=== PATIENT | female | born 1935 | race Caucasian/White ===

== ENCOUNTER 2018-01-29 16:52 | Emergency (ER) | payer OTHER ==
[~2018-01-29] VITALS: Ht 162.6 cm; Wt 64.9 kg
--- NOTE | 2018-01-29 17:26 | ED UPPER/LOWER EXTREMITY COMPL ---
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 STATES SHE WAS TRYING TO GET INTO HER DAUGHTERS CAR AND SHE MISSED A STEP AND FELL INTO THE GROUND. DENIES HEADSTRIKE. STATES SHE FELL ONTO HER KNEE. DENIES TAKING BLOOD THINNERS. PT A&O X3. Triage Nurses Notes Reviewed? yes Onset: Abrupt Duration: minute(s): Timing: single episode today Severity: moderate Pain/Injury Location: Right: Knee, Ankle. Method of Injury: fall HPI: 82yo female with hx of osteopenia, HTN presents to ED complaining of pain in right knee and ankle after fall prior to arrival. Patient states that she was lifting her left foot to get into the car when she slipped backwards and fell landing on her right leg. Patient did not hit her head or lose consciousness during the fall. Patient was having difficulty getting up however was able to get up to stand however pain is worse when she bears weight on the right leg. Patient has pain in right knee and right ankle at this time. Patient's daughter states that the patient had a fall within the past few weeks while she was on vacation as well. Patient denies headache, abdominal pain, back pain, numbness, tingling, bleeding. (Vale HANDY,Bozena Dominguez) Past History Travel History Traveled to [place] past 21 day No Medical History Any Pertinent Medical History? see below for history Neurological: NONE EENT: NONE Cardiovascular: hypertension, hyperlipidemia Respiratory: NONE Gastrointestinal: NONE Hepatic: NONE Renal: NONE Musculoskeletal: NONE Psychiatric: NONE Endocrine: NONE Blood Disorders: NONE Cancer(s): NONE CHIEF INFORMATICS OFFICER/Reproductive: NONE Surgical History Surgical History: non-contributory Psychosocial History What is your primary language Faroese Tobacco Use: Never used Family History Hx Contributory? No (Bozena Zamora) Review of Systems Review of Systems Constitutional: Reports: no symptoms. EENTM: Reports: no symptoms. Respiratory: Reports: no symptoms. Cardiovascular: Reports: no symptoms. Gastrointestinal/Abdominal: Reports: no symptoms. Genitourinary: Reports: no symptoms. Musculoskeletal: Reports: see HPI. Skin: Reports: no symptoms. Neurological/Psychological: Reports: no symptoms. Hematologic/Endocrine: Reports: no symptoms. Immunological: Reports: no symptoms. All Other Systems: Reviewed and Negative (Bozena Zamora) Physical Exam Physical Exam General Appearance: well developed/nourished, no apparent distress, alert, awake Head: atraumatic, normal appearance Eyes: Bilateral: normal appearance. Ears, Nose, Throat: hearing grossly normal Neck: normal inspection, supple, full range of motion, no midline tenderness Cardiovascular/Respiratory: normal peripheral pulses, no respiratory distress Peripheral Pulses: 2+ dorsalis pedis (R) Back: normal inspection, normal range of motion, no vertebral tenderness Leg Left: normal range of motion, normal inspection Leg Right: normal range of motion, normal inspection Hip Left: normal range of motion, normal inspection Hip Right: normal range of motion, normal inspection Knee Left: normal range of motion, normal inspection Knee Right: normal range of motion, tenderness to anterior and lateral knee, mild swelling Knee Ligaments Right: no gross laxity Foot Left: normal inspection, normal range of motion Foot Right: tenderness to lateral malleolus with mild ecchymosis and swelling Neurologic/Tendon: normal sensation, normal motor functions, normal tendon functions Skin: warm/dry, ecchymosis (Bozena Zamora) Progress Differential Diagnosis: contusion, dislocation, fracture, sprain, tendon injury Plan of Care: X-rays show subtle eversion fracture to right distal fibula. Also old fifth metatarsal fracture as well as acute vs old lateral epicondyle fracture. Patient and family educated on these findings. Spoke with Dr. Duke regarding this patient. He recommends posterior legs point to immobilize ankle and she will follow-up with the patient tomorrow in his office. He states light weightbearing on right side is allowed. Patient has a screening walker that she can sit on and will allow her to be mobile in her home until she follows up with Dr. Duke tomorrow. Dr. Duke feels that knee immobilization is not required at this time. Patient placed in posterior leg splint, she tolerated splinting well. Patient feels comfortable in transitioning from chair to bed with splint on. Patient and family agree with the plan of care, they will follow-up with Dr. Duke tomorrow as discussed. Patient and family feel comfortable with over-the- counter pain management with Tylenol. Diagnostic Imaging: Viewed by Me: Radiology Read. Discussed w/RAD: Radiology Read. Radiology Impression: PATIENT: DIYA VANCE PRESENT AGE: 82 PATIENT ACCOUNT NO: [id number] : 34 LOCATION: [facility] ORDERING PHYSICIAN: Bozena HANDY SERVICE DATE: 01/29/18 EXAM TYPE: RAD - XRY-ANKLE 3 OR MORE VIEWS R; XRY-FOOT COMPLETE, R; XRY-KNEE COMPLETE RIGHT EXAMINATION: XR KNEE, RIGHT XR ANKLE, RIGHT XR FOOT, RIGHT CLINICAL INFORMATION: Status post fall today. Right ankle pain, knee pain and foot pain. Evaluate for fracture. COMPARISON: Right knee films dated 07/14/2017. TECHNIQUE: Four views of the right knee. 3 views of the right ankle and 3 views of the right foot. FINDINGS: Right knee: There is a fracture of the lateral femoral condylar osteophyte, of uncertain chronicity given the associated underlying sclerosis in this region. In the acute trauma setting, acute fracture is suspected. Finding is new compared to the prior exam. There is moderate degenerative change in the lateral femoral compartment with joint space narrowing and sclerosis and spurring of the femoral condyle and tibial plateau. Mild degenerative changes seen in the patellofemoral compartment. Medial femoral compartment is relatively well-maintained in height with minimal spurring noted. No joint calcifications is seen. Trace suprapatellar knee joint effusion is noted. Osteopenia is seen. Right ankle: Diffuse osteopenia. Mild bimalleolar soft tissue swelling. Evaluation is limited due to degree of osteopenia. There is a small bone fragment seen at the tip of the fibula, possibly a small avulsion fracture. No other fractures seen. The ankle mortise remains intact. No ankle joint effusion is seen. There is a old ununited fracture at the base of the fifth metatarsal bone seen. Right foot: Diffuse osteopenia. Dorsal soft tissue swelling over the midfoot. No acute fracture or dislocation. Old ununited fracture at the base of the fifth metatarsal bone is seen. Small plantar calcaneal spur is noted. IMPRESSION: 1. Marked osteopenia. 2. Fracture of the lateral femoral condylar osteophyte is seen, new when compared to 07/14/2017, and possibly acute. Evaluation of chronicity of the fracture is limited due to underlying sclerosis of the bone in this location. Close clinical correlation is requested. 3. Suspicion of subtle avulsion fragment at the tip of the fibula with overlying soft tissue swelling. 4. 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 No acute fracture of the right foot is seen. DICTATED BY: Tresa Mckeon MD DATE/TIME DICTATED:01/29/181819 ELECTRIC POWER MACHINE OPERATOR:DONN DATE /TIME TRANSCRIBED:01/29/181819 CONFIDENTIAL, DO NOT COPY WITHOUT APPROPRIATE AUTHORIZATION. <Electronically signed in Other Vendor System> SIGNED BY: Tresa Mckeon MD 01/29/18 183 (Vale HANDY,Bozena Dominguez) Departure Departure Disposition: HOME OR SELF CARE Condition: Stable Clinical Impression Primary Impression: Avulsion fracture of distal fibula Secondary Impressions: Fall Qualifiers: Encounter type: initial encounter Qualified Code: W19.XXXA - Unspecified fall, initial encounter Fracture of fifth metatarsal bone Qualifiers: Encounter type: subsequent encounter Fracture type: closed Fracture alignment: displaced Laterality: right Fracture healing: with nonunion Qualified Code: S92.351K - Displaced fracture of fifth metatarsal bone, right foot, subsequent encounter for fracture with nonunion Fracture of lateral condyle of femur Qualifiers: Encounter type: initial encounter Fracture type: closed Fracture alignment: displaced Laterality: right Qualified Code: S72.421A - Displaced fracture of lateral condyle of right femur, initial encounter for closed fracture Referrals: Jonathan Corey MD (PCP/Family) Giovanni Duke DPM Additional Instructions: Take Tylenol 500-650 mg as needed for pain, ibuprofen 400 mg for pain. Follow- up with Dr. Duke tomorrow morning at 11AM. His address in your paperwork. Return with worsening symptoms or concerns. Please note that there might be incidental findings in your evaluation that are unrelated to the current emergency department visit. Please notify your primary care doctor about this emergency department visit in order to obtain and review all of the testing performed so that these incidental findings can be monitored as needed. If you had an x-ray performed, please understand that some fractures may not be seen on the initial set of x-rays. If your symptoms persist you might need a repeat set of x-rays to check for such a fracture. If you had a laceration evaluated, please understand that foreign bodies such as glass or wood may not be visible to the naked eye or on plain x-rays. If the wound becomes red, swollen, increasingly more painful or if there is any drainage from the wound, please have it reevaluated by a physician for the possibility of a retained foreign body. If you're unable to follow up as outlined in the discharge instructions please return to the emergency department. Thank you for choosing the [facility] Emergency Department for your care. It was a pleasure to serve you today. Departure Forms: Customer Survey General Discharge Information (Bozena Zamora) PA/MACHINE OPERATOR PACKAGING Co-Sign Statement Statement: ED Attending supervision documentation- [x] I saw and evaluated the patient. I have also reviewed all the pertinent lab results and diagnostic results. I agree with the findings and the plan of care as documented in the PA's/MACHINE OPERATOR PACKAGING's documentation. [] I have reviewed the ED Record and agree with the PA's/MACHINE OPERATOR PACKAGING's documentation. [] Additions or exceptions (if any) to the PAs/MACHINE OPERATOR PACKAGING's note and plan are summarized below: [] (Monique CLEMENTS,Los Espinoza) Procedures Splinting Location: ankle Manual Alignment Performed: No Hand-Made Type: orthoglass Splint: posterior leg Splint Applied By: splint applied by me Pre-Proc Neuro Vasc Exam: normal Post-Proc Neuro Vasc Exam: normal Progress: Patient tolerated procedure well. (Bozena Zamora)
--- NOTE | 2018-01-29 18:32 | RADIOLOGY REPORT ---
EXAMINATION: XR KNEE, RIGHT XR ANKLE, RIGHT XR FOOT, RIGHT CLINICAL INFORMATION: Status post fall today. Right ankle pain, knee pain and foot pain. Evaluate for fracture. COMPARISON: Right knee films dated 07/14/2017. TECHNIQUE: Four views of the right knee. 3 views of the right ankle and 3 views of the right foot. FINDINGS: Right knee: There is a fracture of the lateral femoral condylar osteophyte, of uncertain chronicity given the associated underlying sclerosis in this region. In the acute trauma setting, acute fracture is suspected. Finding is new compared to the prior exam. There is moderate degenerative change in the lateral femoral compartment with joint space narrowing and sclerosis and spurring of the femoral condyle and tibial plateau. Mild degenerative changes seen in the patellofemoral compartment. Medial femoral compartment is relatively well-maintained in height with minimal spurring noted. No joint calcifications is seen. Trace suprapatellar knee joint effusion is noted. Osteopenia is seen. Right ankle: Diffuse osteopenia. Mild bimalleolar soft tissue swelling. Evaluation is limited due to degree of osteopenia. There is a small bone fragment seen at the tip of the fibula, possibly a small avulsion fracture. No other fractures seen. The ankle mortise remains intact. No ankle joint effusion is seen. There is a old ununited fracture at the base of the fifth metatarsal bone seen. Right foot: Diffuse osteopenia. Dorsal soft tissue swelling over the midfoot. No acute fracture or dislocation. Old ununited fracture at the base of the fifth metatarsal bone is seen. Small plantar calcaneal spur is noted. IMPRESSION: 1. Marked osteopenia. 2. Fracture of the lateral femoral condylar osteophyte is seen, new when compared to 07/14/2017, and possibly acute. Evaluation of chronicity of the fracture is limited due to underlying sclerosis of the bone in this location. Close clinical correlation is requested. 3. Suspicion of subtle avulsion fragment at the tip of the fibula with overlying soft tissue swelling. 4. 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 No acute fracture of the right foot is seen.
[2018-01-29 19:34] VITALS: BP 154/70
== END 2018-01-29 19:53 ==
LOC: ERH 16:52
DX: S72.421A Displaced fracture of lateral condyle of right femur, initial encounter for closed fracture (principal); S82.401A Unspecified fracture of shaft of right fibula, initial encounter for closed fracture; S92.351A Displaced fracture of fifth metatarsal bone, right foot, initial encounter for closed fracture; W19.XXXA Unspecified fall, initial encounter; Y93.89 Activity, other specified; Y92.9 Unspecified place or not applicable
CPT/HCPCS: 73562-RT; 73610-RT; 73630-RT

== ENCOUNTER → 2018-07-28 | Day surgery (SDC) | payer OTHER ==
[~2018-07-28] VITALS: Ht 142.2 cm; Wt 52.6 kg
--- NOTE | 2018-07-28 10:10 | ULTRASOUND CBW REPORT ---
EXAMINATION: US GUIDED NEEDLE LOCALIZATION BREAST, LEFT POST PROCEDURE LEFT DIAGNOSTIC MAMMOGRAM CLINICAL INFORMATION: Needle localization of left breast cancer at 2:00, 7 cm from the nipple. COMPARISON: Preoperative films dated 06/29/2018. TECHNIQUE NEEDLE LOC: Proper informed consent is obtained from the patient after discussion of the procedure, potential risks and complications, and alternatives including declining the procedure today. Patient was given an opportunity for questions. The patient appeared to understand. The patient consented to the procedure and signed the consent form. GUIDANCE: Ultrasound. APPROACH: Lateral. TARGET: 0.7 x 0.6 x 0.8 cm mass in the 2:00 position of the left breast, 7 cm from the nipple. ANESTHESIA: 10 mL lidocaine 2 % LOCALIZATION MARKER: CyberVision Text 5 cm needle localization system. The skin was prepped and local anesthesia administered. The needle was positioned and position assessed with mammography. The wire was hooked into position. The patient tolerated the procedure well and had no immediate complication. Diagram was marked for the surgeon. The target is located around the thick segment of the wire, 3 cm deep to the skin with 8 cm of the wire remaining external to the skin. IMPRESSION: Status post left breast needle localization with wire hooked into position. The target is located around the thick segment of the wire, 3 cm deep to the skin with 8 cm of the wire remaining external to the skin.
--- NOTE | 2018-07-28 12:00 | Operative Report ---
Operative/Inv Procedure Report Surgery Date: 07/28/18 Name of Procedure: Left partial mastectomy with wire localization and sentinel lymph node biopsy Pre-Operative Diagnosis: Left breast cancer Post-Operative Diagnosis: Same Estimated Blood Loss: less than 50ml Surgeon/Brake Holder: Maddy Newby MD Anesthesia: laryngeal mask airway Specimens: Left partial mastectomy, cranial margin, caudal margin, medial margin, skin margin, sentinel lymph node Operative/Procedure Note Note: Patient is status post a needle biopsy showing left breast cancer. She was brought for a left lumpectomy and sentinel lymph node biopsy. Preoperative wire localization and lymphoscintigraphy were performed and this films reviewed. She was brought to the operating room placed under anesthesia. 3 mL of methylene blue diluted with 2 mL of saline was injected in the retroareolar fashion. The left breast and axilla were prepped and draped in a sterile fashion using ChloraPrep. 2 g of Ancef were given. To the location of the tumor, one incision was planned. A lower axillary incision was made after administering lidocaine and Marcaine mix. The breast was approached first. The wire was brought into the specimen and the area of concern was grasped using an Allis clamp. The dissection was wide along the pectoralis muscle. Fascia was removed in the specimen. The specimen was removed and marked for orientation. Additional margins were taken in the cranial, caudal, medial, and anterior/skin planes. No additional deep or lateral margin was removed. Through the same incision the axilla was approached. The axilla was explored and a single hot lymph node was identified and excised. No other hot, blue, or palpable lymph nodes were identified and the axilla. The wound was irrigated with sterile saline. Deep tissue was proximal made using interrupted Vicryl sutures and the skin was closed using a running Biosyn subcuticular stitch. Insertion sterile dressings were applied and patient transferred to recovery room in satisfactory condition having tolerated the procedure well.
--- NOTE | 2018-07-28 14:30 | MAMMOGRAPHY REPORT ---
EXAMINATION: MM NEEDLE LOCALIZATION SPECIMEN FROM THE BREAST, LEFT CLINICAL INDICATION: Excision of left breast mass. COMPARISON: Needle localization films from earlier today. TECHNIQUE: Single specimen radiograph was obtained. FINDINGS: The radiograph of the excised surgical specimen shows that the hookwire is delivered intact and the marker clip is identified in the specimen. IMPRESSION: Satisfactory excision of the targeted lesion. These findings were communicated to the surgeon in the OR at the time of specimen radiography.
== END ==
LOC: CBW.IIU 01:31 → STS 01:31 → CBW.IIU 08:00 → CBW.US 08:30
DX: C50.412 Malignant neoplasm of upper-outer quadrant of left female breast (principal); Z17.0 Estrogen receptor positive status [ER+]; I10 Essential (primary) hypertension; Z87.891 Personal history of nicotine dependence; J45.909 Unspecified asthma, uncomplicated; K21.9 Gastro-esophageal reflux disease without esophagitis
CPT/HCPCS: 76942; 77065-LT; J0690; J2001; J2250